=== PATIENT | male | born 1960 | race Caucasian/White ===

== ENCOUNTER 2025-02-12 10:38 | Outpatient (OUT) | payer OTHER, SELFPAY ==
[2025-02-13 08:09] LABS: Sex Horm Binding Glob, Serum 35.9 nmol/L (19.3-76.4)
== END 2025-02-12 10:39 | disposition home or self-care (01) ==
LOC: LAB 10:41
PROVIDERS: PCP Family Medicine; Visit Provider Family Medicine
DX: R53.83 Other fatigue (principal)
CPT/HCPCS: 36415; 84270; 84402; 84403

== ENCOUNTER 2025-06-21 11:09 | Outpatient (OUT) | payer OTHER, SELFPAY ==
--- OUTSIDE RECORDS SUMMARY | 2025-06-21 11:12 | XMS_ITS | Clinical Summary ---
Author Organization [facility] Healthcare Address [address] [place] [address] Care Team Providers Care Pest Control Service Sales Agent Name Role Phone Unavailable Primary Care Provider Unavailabl e Social History Tobacco UseTypesPacks/DayYears UsedDateSmoking Tobacco: Never AssessedSex and Gender InformationValueDate RecordedSex Assigned at BirthNot on fileLegal Sex Male09/12/2022 6:36 PM EDTGender IdentityNot on fileSexual OrientationNot on file Last Filed Vital Signs Vital SignReadingTime TakenCommentsBlood Tynodgun522/9206 12:00 PM EDT Pulse--Temperature--Respiratory Rate--Oxygen Saturation--Inhaled Oxygen Concentration--Efpiha085 kg (309 lb)12/12/2020 12:00 PM RANEblets495.8 cm (5' 10 )04/14/2021 12:00 PM EDTBody Mass Index45.63012/12/2020 12:00 PM EDT Plan of Treatment Not on file
--- OUTSIDE RECORDS SUMMARY | 2025-06-21 11:12 | XMS_ITS | Clinical Summary ---
Author Organization [facility] Address [address] [place] [address] Phone Care Team Providers Care Warp Coiler Name Role Phone Walter Cabrales DO Primary Care Provider [phone] Encounters DateTypeDepartmentCare GvhfSlmilyyqtcx13/25/2025 4:45 PM EDTAncillary Procedure [facility] [address] [place] [phone] Hyperlipidemia, zcigmzblnra21/25/2025Travelfrom Last 3 Months Social History Tobacco UseTypesPacks/DayYears UsedDateSmoking Tobacco: Never AssessedSex and Gender InformationValueDate RecordedSex Assigned at BirthNot on fileLegal Sex Male02/15/2025 10:04 AM EDTGender IdentityNot on fileSexual OrientationNot on file Plan of Treatment Health MaintenanceDue DateLast DoneCommentsCT Vfutaghmwtzc10/28/1963Colonoscopy 1962FIT1962HIV Igctprazu95/28/1963Lipid Panel1962Sigmoidoscopy 1962MMR Vaccines (1 of 1 - Standard series)1963Hepatitis C Screening 1980Hepatitis A Vaccines (1 of 2 - Risk 2-dose series)1981 DTaP/Tdap/Td Vaccines (1 - Tdap)1984PSA Prostate Cancer Screening 2012Pneumococcal Vaccine (1 of 1 - PCV)2012RSV High Risk: (Elderly (60+) or Population) (1 - Risk 50-74 years 1-dose series)2012 Zoster Vaccines (1 of 2)2012Hepatitis B Vaccines (1 of 3 - Risk 3-dose series)2022Yearly Adult Zotjtvsh48/20/200331/2COVID-19 Vaccine (4 - season), 06/18/2022, 10/07/2020Influenza Vaccine (#1), 06/18/2022, 03/08/2020, Additional history exists Colorectal Cancer Kyocslvon61/28/2027FIT-DNA (Cologuard)HIB VaccinesAged OutNo longer eligible based on patient's age to complete this topic HPV VaccinesAged OutNo longer eligible based on patient's age to complete this topicIPV VaccinesAged OutNo longer eligible based on patient's age to complete this topicMeningococcal VaccineAged OutNo longer eligible based on patient's age to complete this topicRotavirus VaccinesAged OutNo longer eligible based on patient's age to complete this topic Procedures Procedure NamePriorityDate/TimeAssociated DiagnosisCommentsCT CARDIAC SCORING WO IV NPDCUXOZHdncmze77/25/2025 3:15 PM EDT Hyperlipidemia, unspecified from Last 3 Months Results * CT cardiac scoring wo IV contrast (03/25/2025 3:15 PM EDT)Anatomical Region LateralityModalityThoracic, ChestComputed TomographySpecimen (Source) Anatomical Location / LateralityCollection Method / VolumeCollection Time Received Time03/26/2025 12:43 PM EDT03/26/2025 12:43 PM EDT Impressions 03/26/2025 12:42 PM EDT 1. Coronary artery calcium score of 0 *. 2. Minimal aneurysmal dilatation of the ascending thoracic aorta measuring up to 4 cm. ?? *Coronary Artery Calcium Gated and Nongated Agatston score Score ?Risk 0 ? Very low 1-99 ?Mildly increased 100-299 ? Moderately increased >300 Moderate to severely increased ?? Issa et al. JCCT 2016 (http://dx.doi.org/10.1016/j.jcct.2016.11.003) ?? VIVEROS 10-Year CHD Risk with Coronary Artery Calcification can be calculated using link below https://www.viveros-nhlbi.org/MESACHDRisk/MesaRiskScore/RiskScore.aspx Merna grajeda al. JACC 2015 (http://dx.doi.org/10.1016/j.j acc.2015.08.035) ?? Signed by: Elmer Gonzalez 03/26/2025 12:42 PM Dictation workstation: ?? [id number] Narrative 03/26/2025 12:42 PM EDT Interpreted By: Elmer Gonzalez, STUDY: CT CARDIAC SCORING WO IV CONTRAST; ??03/25/2025 3:15 pm ?? INDICATION: Signs/Symptoms:SCREENING. ?? COMPARISON: None. ?? ACCESSION NUMBER(S): [id number] ?? ORDERING CLINICIAN: WALTER CABRALES ?? TECHNIQUE: Using prospective ECG gating, CT scan of the coronary arteries was performed without intravenous contrast. Coronary calcium scoring ??was performed according to the method of Agatston. ?? FINDINGS: The score and distribution of calcium in the coronary arteries is as follows: ?? LM 0, LAD 0, LCx 0, RCA 0, ?? Total ?? 0 ?? There is mild aneurysmal dilatation of the ascending thoracic aorta measuring up to 4 cm in diameter. The heart is normal in size. No pericardial effusion is present.Main pulmonary artery is normal in caliber. ?? There is no evidence of lymphadenopathy or mass within the visualized mediastinum.The visualized esophagus is unremarkable. ?? The visualized segments of the lungsare normally expanded. ?? The visualized subdiaphragmatic structures demonstrate no remarkable findings. ? Procedure Note Elmer Gonzalez MD - 03/26/2025 Interpreted By: Elmer Gonzalez, STUDY: CT CARDIAC SCORING WO IV CONTRAST; 03/25/2025 3:15 pm INDICATION: Signs/Symptoms:SCREENING. COMPARISON: None. ACCESSION NUMBER(S): [id number] ORDERING CLINICIAN: WALTER CABRALES TECHNIQUE: Using prospective ECG gating, CT scan of the coronary arteries was performed without intravenous contrast. Coronary calcium scoring was performed according to the method of Agatston. FINDINGS: The score and distribution of calcium in the coronary arteries is as follows: LM 0, LAD 0, LCx 0, RCA 0, Total 0 There is mild aneurysmal dilatation of the ascending thoracic aorta measuring up to 4 cm in diameter. The heart is normal in size. No pericardial effusion is present.Main pulmonary artery is normal in caliber. There is no evidence of lymphadenopathy or mass within the visualized mediastinum.The visualized esophagus is unremarkable. The visualized segments of the lungsare normally expanded. The visualized subdiaphragmatic structures demonstrate no remarkable findings. IMPRESSION: 1. Coronary artery calcium score of 0 *. 2. Minimal aneurysmal dilatation of the ascending thoracic aorta measuring up to 4 cm. *Coronary Artery Calcium Gated and Nongated Agatston score Score Risk 0 Very low 1-99 Mildly increased 100-299 Moderately increased >300 Moderate to severely increased Issa et al. JCCT 2016 (http://dx.doi.org/10.1016/j.jcct.2016.11.003) VIVEROS 10-Year CHD Risk with Coronary Artery Calcification can be calculated using link below https://www.viveros-nhlbi.org/MESACHDRisk/MesaRiskScore/RiskScore.aspx Gregorio. JACC 2015 (http://dx.doi.org/10.1016/j.j acc.2015.08.035) Signed by: Elmer Gonzalez 03/26/2025 12:42 PM Dictation workstation: [id number] Authorizing ProviderResult TypeResult StatusDavid Faisal Cabrales DOIMG CT PROCEDURES Final Result from Last 3 Months Insurance * Guarantor: Nigel Brandon TypeRelation to PatientDate of BirthPhoneR[facility] AddressPersonal/IsowbjHygy[birth year][address] [place] [phone] * Guarantor: Nigel Brandon TypeRelation to PatientDate of [facility] AddressPersonal/RixxdzZgfc[birth year][address] [place] [id number] Care Teams Team MemberRelationshipSpecialtyStart DateEnd Date Walter Cabrales DO [address] [place] [address] PCP - GeneralFamily Medicine03/25/25
--- OUTSIDE RECORDS SUMMARY | 2025-06-21 11:12 | XMS_ITS | Clinical Summary ---
Author Organization [facility] Address [address], [address] [place] [address] Care Team Providers Care Passenger Barge Master Name Role Phone Bran Lazar DO Primary Care Provider Unavail able Allergies Active AllergyReactionsCriticalityNoted QugeBkirvhoeIjzelcsufrl97/07/2016 Medications MedicationSigDispense QuantityRefillsLast FilledStart DateEnd DateStatus hydrochlorothiazide (HYDRODIURIL) 25 MG tablet Take 25 mg by mouth dailyActive metoprolol succinate ER (TOPROL-XL) 100 MG XL tablet Take 100 mg by mouth dailyActive benazepril (LOTENSIN) 40 MG tablet Take 40 mg by mouth dailyActive rosuvastatin (CRESTOR) 10 MG tablet Take 10 mg by mouth dailyActive Active Problems ProblemNoted DateDiagnosed JzysFkhsfislkxwmb88/07/9745Ghirdbq93/07/2016 Social History Tobacco UseTypesPacks/DayYears UsedDateSmoking Tobacco: NeverAlcohol UseStandard Drinks/WeekCommentsNo0 (1 standard drink = 0.6 oz pure alcohol)Sex and Gender InformationValueDate RecordedSex Assigned at BirthNot on fileLegal SexMale 11/16/2015 11:30 AM EDTGender IdentityNot on fileSexual OrientationNot on file Last Filed Vital Signs Vital SignReadingTime TakenCommentsBlood Uyaatdfg763/8401/27/2016 12:20 PM EDT Ueuia095301/27/2016 12:20 PM VIWQscngwwaeex98.5 ??C (97.7 ??F)01/27/2016 11:50 AM EDTRespiratory Mfdy360601/27/2016 12:20 PM EDTOxygen Vgqkwddpyj25%01/27/2016 11:50 AM EDTInhaled Oxygen Concentration--Nofjqw746.9 kg (260 lb)01/27/2016 10:07 AM IQLKaeglk606.3 cm (5' 11 )01/27/2016 10:07 AM EDTBody Mass Index36.26001/27/2016 10:07 AM EDT Plan of Treatment Not on file Insurance Advance Directives * Full Code (Latest Code Status on File) Date ActivatedDate InactivatedComments01/27/2016 12:12 PM01/28/2016 2:47 AM Care Teams Team MemberRelationshipSpecialtyStart DateEnd Date Bran Lazar DO [address] [place] [address] [facility]CP [facility]11/25/15
--- OUTSIDE RECORDS SUMMARY | 2025-06-21 11:12 | XMS_ITS | Patient Health Record ---
Author Organization [facility] Address [address] [place] [address] Care Team Providers Care Certified Prosthetist Name Role Phone Dr. Connor Cline Primary Care Provider [phone] Reason For Referral No Information Plan Of Treatment No Information Insurance Providers Payer Name Payer Address Payer Phone Subscriber Number Group Number Insured Name Patient Relationship to Insured Coverage Start Date Coverage End Date [employer] [place] Medicaid [address] [place] [address] [id number] JANICE HOBBS Self - patient is the insured [facility] [address] [place] [id number], CRAIGSelf - patient is the toucilm0808/01/2022zDENTAL [facility] [place]-termed 07/31/[address] [place] [id number], CRAIGSelf - patient is the [id number] MEDICAID [employer] after [facility]- termed 07/31/22[address] [place] [id number] Yoselin HOBBSlf - patient is the [id number] UHC [place] MedicaidPO [address] [place] [id number] Yoselin HOBBSlf - patient is the nmvnslb0308/01/2022ental Wrap [facility] [address] [place] [id number], CRAIGSelf - patient is the iwruvzo9308/01/2022[facility] [address] [place] [id number], CRAIGSelf - patient is the cyvtwpa3908/01/2022
--- OUTSIDE RECORDS SUMMARY | 2025-06-21 11:12 | XMS_ITS | Clinical Summary ---
Author Organization [facility] Address [address] [place], [place] [address] Care Team Providers Care Food Service Representative Name Role Phone Unavailable Primary Care Provider Unavailabl e Allergies Active AllergyReactionsCriticalityNoted DateCommentsAmlodipine-BenazeprilUnknown 2PenicillinsAnaphylaxis,Swelling,WjznbyyCcz81/07/2016 Medications MedicationSigDispense QuantityRefillsLast FilledStart DateEnd DateStatus Benazepril HCl 40 mg tablet Take 20 mg by mouth once daily.2Active SYMBICORT 160-4.5 mcg/actuation inhaler Inhale 2 Puffs as instructed twice daily.09/27/2021ctive hydroCHLOROthiazide (HYDRODIURIL, ESIDRIX) 25 mg tablet Take 25 mg by mouth once daily.11/23/2021ctive rosuvastatin (CRESTOR) 10 mg tablet Take 10 mg by mouth daily at bedtime.2Active Active Problems No known active problems Immunizations ImmunizationAdministration DatesNext Dueinfluenza (IIV4) vaccine, age 6 mo - 64 yr, quadrivalent, PF (AFLURIA, FLUARIX, FLULAVAL, FLUZONE)03/08/2020,04/11/2019, 05/03/2018,03/20/2017 Social History Tobacco UseTypesPacks/DayYears UsedDateSmoking Tobacco: NeverSmokeless Tobacco: NeverArea Deprivation IndexAnswerDate RecordedNational Score (1-100), lower number is lower jqkw584307/13/2022State Score (1-10), lower number is lower risk Not on file3Data from: https://www.neighborhoodatlas.medicine.[facility].edu/. Last address used for [address] [place] [address]7/13/2022Sex and Gender InformationValueDate RecordedSex Assigned at BirthNot on fileLegal QucOlkp6812/28/2021 11:28 AM EDT Gender IdentityNot on fileSexual OrientationNot on file Last Filed Vital Signs Vital SignReadingTime TakenCommentsBlood Abufects100/8201/03/2022 3:40 PM EDT Qojmy100601/03/2022 3:40 PM KCISelwvpcdplv95.4 ??C (97.5 ??F)01/03/2022 3:40 PM EDTRespiratory Bssv137301/03/2022 3:40 PM EDTOxygen Srqrpkpexy63%01/03/2022 3:40 PM EDTInhaled Oxygen Concentration--Kshczf826.5 kg (285 lb 7.9 oz)01/03/2022 3:40 PM GDCOjplwd102.3 cm (5' 11 )01/03/2022 3:40 PM EDTBody Mass Index39.82 01/03/2022 3:40 PM EDT Plan of Treatment Health MaintenanceDue DateLast DoneCommentsAnxiety Snnestapv40/28/1981Depression Eccxieaul41/28/1981HIV Ijafoxvtb45/28/1981Hepatitis C Swtqincku23/28/1981 DTaP,Tdap,Td Vaccine (1 - Tdap)1981Lipid Yeyhbtiri75/28/1998CT Uddyjklwzgrg50/28/2008Cologuard (FIT-DNA)07/28/20074558Wluhaxeiiek53/28/2008 Colorectal Cancer Iypwmdxou41/28/2008Fecal Occult Blood2007Prostate Cancer Screening Stkuhrksfx35/28/7712Xwduwwdfttzma41/28/2008Pneumococcal Vaccine: 50+ (1 of 1 - PCV)2012Shingrix Vaccine (1 of 2)2012Diabetes Screening /2Covid-19 Vaccine (2 - season)504/03/2021 Influenza Vaccine (#1)509/01/2020, 04/11/2019, 05/03/2018, Additional history existsRSV Vaccine (1 - 1-dose 75+ series)2037 Procedures Procedure NamePriorityDate/TimeAssociated DiagnosisCommentsBASIC METABOLIC PANEL Lbqaqha8901/03/2022 5:25 PM EDT Shortness of breath from Last 3 Months or Most Recently Relevant to Health Maintenance Results * BASIC METABOLIC PNL (01/03/2022 5:25 PM EDT)ComponentValueRef RangeTest Method Analysis TimePerformed AtPathologist NweobygzhCupfmpz6289 - 99 mg/dL01/04/2022 2:51 PM [facility] LABComment: The [place] Diabetes Association (ADA) provides guidance for cutoff values for fasting glucose andrandom glucose. The ADA defines fasting as no caloric intake for at least 8 hours. Fasting plasma glucose results between 100 to 125 mg/dL indicate increased risk for diabetes (prediabetes). Fasting plasma glucose results greater than or equal to 126 mg/dL meet the criteria for diagnosis of diabetes. In the absence of unequivocal hyperglycemia, results should be confirmed by repeat testing. In a patient with classic symptoms of hyperglycemia or hyperglycemic crisis, random plasma glucose results greater than or equal to 200 mg/dL meet the criteria for diagnosis of diabetes. Reference: Standards of Medical Care in Diabetes 2016, [place] Diabetes Association. Diabetes Care. 2016.39(Suppl 1). PSL177 - 24 mg/dL01/04/2022 2:51 PM [facility] Creatinine0.960.73 - 1.22 mg/dL01/04/2022 2:51 PM [facility] CPSXmyewa763780 - 144 mmol/L01/04/2022 2:51 PM [facility] LABPotassium3.73.7 - 5.1 mmol/L01/04/2022 2:51 PM [facility] CZIPspihngr37069 - 105 mmol/L01/04/2022 2:51 PM [facility] HBKDO87224 - 30 mmol/L01/04/2022 2:51 PM [facility] LABAnion Tln460 - 18 mmol/L01/04/2022 2:51 PM [facility] LABCalcium, Total9.88.5 - 10.2 mg/dL01/04/2022 2:51 PM [facility] LABEstimated Glomerular Filtration Rate91>=60 mL/min/1.73m 01/04/2022 2:51 PM [facility] LABComment:Estimated Glomerular Filtration Rate (eGFR) is calculated using the 2020 CKD-EPI creatinine equation. This equation utilizes serum creatinine, sex, and age as parameters. The creatinine assay has traceable calibration to isotope dilution- mass spectrometry. Refer to KDIGO guidelines for clinical interpretation. In patients with unstable renal function, e.g. those with acute kidney injury, the eGFRmay not accurately reflect actual GFR.Specimen (Source)Anatomical Location / LateralityCollection Method / VolumeCollection TimeReceived TimeBloodBLOOD SPECIMEN / UnknownVenipuncture / Imbxrwl7401/03/2022 5:25 PM EDT01/03/2022 5:25 PM EDT Narrative Authorizing ProviderResult TypeResult StatusAngel Nessa Oneill MDLABORATORYFinal ResultPerforming OrganizationAddressCity/State/ZIP CodePhone Number [facility] [address] [place] [address], from Last 3 Months or Most Recently Relevant to Health Maintenance Insurance
--- NOTE | 2025-06-21 12:04 | P.CN_ITS ---
Consult Note: HPI Data of Consult Patient: new to practice Consult date: 06/21/25 Requesting Physician: Barbara Solorzano MD Primary Care Provider: WALTER CABRALES Consult Narrative Reason for consult: low back, right leg pain Narrative: 64yom who presents for evaluation. notes longstanding history of low back pain >20 years, worsening radiating right leg pain. states leg goes numb. underwent lumbar xrs, which showed multilevel degenerative disc disease and spondylosis. has completed physical therapy and engages in chiropractic therapy >6 weeks, without significant benefit. uses tylenol and advil. 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 cc:: CC: Barbara Solorzano MD Review of Systems ROS Status of ROS 10 or more systems reviewed and unremark able except as noted in history and below Exam Narrative Exam Narrative: Psych-alert and oriented x 3. Attentive and appropriate, constitutionally normal, displays normal mood and affect per situation. There are no obvious deficits in memory, reasoning, or intellect.? Skin-no obvious rashes, bruising, erythema noted to the patient's area of pain.? Extremities- extremities are warm with minimal edema and palpable pulses. Lumbar-tenderness to palpation noted in the lumbar spine and paraspinal musculature. Pain is elicited with flexion, extension, and lateral rotation of the lumbar spine. Range of motion is diminished with these motions. Facet loading maneuvers are positive.? Strength-noted to be unremarkable with the exception of decreased strength rated at 4 out of 5 in right quadriceps femoris, anterior tibialis. Sensory-no notable sensory deficits in the bilateral lower extremities to touch or pinprick in all dermatomal distributions with the exception to decreased sensation to the right L4, 5 dermatomal distribution Coordination remains intact.? Gait remains non-antalgic. Assessment and Plan Assessment and Plan (1) Lumbar stenosis with neurogenic claudication: Plan 64yom who presents for evaluation. failed conservative measures, as noted. imaging reviewed, as noted. given symptoms and imaging, prudent to obtain lumbar mri without contrast for further info. he is in agreement. meds reviewed, will trial neurontin 300mg tid. follow up after imaging.
== END 2025-06-21 11:10 | disposition home or self-care (01) ==
LOC: PM 11:09
PROVIDERS: PCP Family Medicine; Visit Provider Anesthesiology
DX: M48.062 Spinal stenosis, lumbar region with neurogenic claudication (principal)
CPT/HCPCS: G0463